=== PATIENT | female | born 1960 | race Caucasian/White ===

== ENCOUNTER 2019-03-24 23:09 | Emergency (ER) | payer SELFPAY ==
[~2019-03-24] VITALS: Ht 160 cm; Wt 107.0 kg
[2019-03-24 23:44] VITALS: Ht 160 cm; Wt 107.0 kg
[2019-03-25 01:37] VITALS: BP 171/86
== END 2019-03-25 01:37 | disposition home or self-care (01) ==
LOC: ED 23:09
DX: T63.511A Toxic effect of contact with stingray, accidental (unintentional), initial encounter (principal); S91.331A Puncture wound without foreign body, right foot, initial encounter; Z88.1 Allergy status to other antibiotic agents; Z88.2 Allergy status to sulfonamides; Y92.832 Beach as the place of occurrence of the external cause